=== PATIENT | male | born 1990 | race African-American/Black ===

== ENCOUNTER 2020-07-04 08:53 | Emergency (ER) | payer OTHER ==
[2020-07-04] MEDS ORDERED: KETOROLAC TROMETHAMINE 60 MG/2 ML VIAL ONE (09:02)
[2020-07-04] MEDS ORDERED: HYDROCODONE/ACETAMINOPHEN 10/325 MG TAB ONE (09:03)
[2020-07-04 09:16] LABS: EOSINOPHILS % (AUTO) 1.1 % (0.0-8.0); LYMPHOCYTES % (AUTO) 30.5 % (21.0-51.0); MEAN CORPUSCULAR HGB CONC 32.2 g/dL (32.0-36.0); MEAN CORPUSCULAR VOLUME 77.7 fL (79-99); MONOCYTES % (AUTO) 8.5 % (3.0-13.0); NEUTROPHILS % (AUTO) 59.5 % (40.0-77.0); PLATELET COUNT (AUTO) 244 K/uL (130-400); RED BLOOD CELL COUNT(AUTO) 5.28 MIL/uL (4.50-6.20); RED CELL DISTRIBUTION WIDTH 14.6 % (11.0-15.5); WHITE BLOOD COUNT (AUTO) 5.5 K/uL (4.8-10.8)
[2020-07-04 09:28] LABS: CREATININE 1.4 mg/dL (0.5-1.5); POTASSIUM 4.1 mmol/L (3.5-5.1)
[2020-07-04 09:33] LABS: ALBUMIN 3.8 g/dL (3.5-5.0); BILIRUBIN,TOTAL 0.2 mg/dL (0.2-1.0); TOTAL PROTEIN, SERUM 8.4 g/dL (6.0-8.3)
[2020-07-04 09:39] LABS: B-TYPE NATRIURETIC PEPTIDE 8 pg/mL (0-100)
== END 2020-07-04 11:47 | disposition home or self-care (01) ==
LOC: EDH 08:53 → EEVIPCON 08:53 → EDH 11:47
DX: I89.0 Lymphedema, not elsewhere classified (principal)
CPT/HCPCS: 36415; 80053; 83880; 85025; 93970; 96372; 99284; J1885